=== PATIENT | male | born 1995 | race Caucasian/White ===

== ENCOUNTER 2017-05-04 01:25 | Emergency (ER) | payer BC ==
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
== END 2017-05-04 02:00 | disposition home or self-care (01) ==
LOC: JD.ED 01:25
DX: Z04.1 Encounter for examination and observation following transport accident (principal); V57.5XXA Driver of pick-up truck or van injured in collision with fixed or stationary object in traffic accident, initial encounter
CPT/HCPCS: 99282; 99283

== ENCOUNTER 2024-10-21 19:44 | Emergency (ER) | payer OTHER, BC ==
[2024-10-21] MEDS: Ketorolac 60 MG/2 ML SDV IM ONE (21:36)
== END 2024-10-21 21:40 | disposition home or self-care (01) ==
LOC: JD.ED 19:44
DX: S70.312A Abrasion, left thigh, initial encounter (principal); V94.9XXA Unspecified water transport accident, initial encounter; Y93.89 Activity, other specified
CPT/HCPCS: 70450; 73552; 96372; 99284; A9270; J1885